=== PATIENT | male | born 1965 | race Caucasian/White ===

== ENCOUNTER 2017-01-19 11:32 | Emergency (ER) | payer SELFPAY ==
--- NOTE | 2017-01-19 12:27 | UC ---
Neck Pain HPI - HPI Summary HPI Summary: AFTER LIFTING A HEAVY GARBAGE CAN YESTERDAY PT FELT A POP AND NOW HAS LEFT SIDED NECK AND UPPER BACK PAIN. HAS SOME TINGLING IN THE FINGERS OF HIS LEFT HAND. - History of Current Complaint Chief Complaint: UCUpperExtremity Stated Complaint: NECK INJURY Time Seen by Provider: 01/19/17 12:14 Hx Obtained From: Patient Timing: Constant Onset/Duration: Sudden Onset Severity: Moderate Pain Intensity: 4 Pain Scale Used: 0-10 Numeric Location: Discrete At: - LEFT NECK Character: Aching Aggravating Factors: Movement Alleviating Factors: Nothing Associated Signs & Symptoms: Positive: Paresthesia - Allergies/Home Medications Allergies/Adverse Reactions: Allergies Allergy/AdvReac Type Severity Reaction Status Date / Time No Known Allergies Allergy Verified 12/20/14 19:54 PMH/Surg Hx/FS Hx/Imm Hx Previously Healthy: Yes - Surgical History Surgical History: Yes Surgery Procedure, Year, and Place: dental, bilat ear tubes, t&a - Family History Known Family History: Negative: Hypertension, Other - TOBACCO ABUSE - Social History Alcohol Use: None Substance Use Type: None Smoking Status (MU): Heavy Every Day Tobacco Smoker Household Exposure Type: Cigarettes Review Of Systems Constitutional: Positive: Negative Skin: Positive: Negative Respiratory: Positive: Negative Cardiovascular: Positive: Negative Gastrointestinal: Positive: Negative Musculoskeletal: Positive: Arthralgia, Myalgia Neurological: Positive: Paresthesia All Other Systems Reviewed And Are Negative: Yes Physical Exam Triage Information Reviewed: Yes Appearance: Well-Appearing, No Pain Distress, Well-Nourished Vital Signs: Initial Vital Signs Temp 97.5 F 01/19/17 11:36 Pulse 93 01/19/17 11:36 Resp 16 01/19/17 11:36 BP 122/76 01/19/17 11:36 Pulse Ox 98 01/19/17 11:36 Vital Signs Reviewed: Yes ENT: Positive: Hearing grossly normal Neck: Positive: Supple, Nontender, No Lymphadenopathy Respiratory Exam: Normal Cardiovascular Exam: Normal Abdomen Description: Positive: Soft Musculoskeletal: Positive: No Edema, Other: - NEG SPURLINGS. Neurological: Positive: Alert Psychological: Positive: Age Appropriate Behavior Skin: Negative: rashes Diagnostics - Radiology C-SPINE XRAYS Xray Interpretation: Positive (See Comments) - STRAIGHTENING OF THE CERVICAL LORDOSIS. MILD DEGENERATIVE CHANGES. Radiology Interpretation Completed By: Radiologist T-SPINE XRAYS Xray Interpretation: Positive (See Comments) - MILD DEGENERATIVE CHANGES. Radiology Interpretation Completed By: Radiologist Neck Pain Course/Dx - Differential Dx/Diagnosis Provider Diagnoses: CERVICAL RADICULOPATHY Discharge - Discharge Plan Condition: Stable Disposition: HOME Prescriptions: predniSONE TAB* [Deltasone TAB*] 50 mg PO DAILY #5 tab Patient Education Materials: Cervical Radiculopathy (ED) Forms: *Work Release Referrals: Jake Fernández MD [Primary Care Provider] - If Needed Linwood Swartz MD [Medical Doctor] - 1 Week Additional Instructions: XRAYS OF YOUR CERVICAL SPINE AND THORACIC SPINE SHOW SOME DEGENERATIVE CHANGES. YOU MAY BENEFIT FROM EVAL BY NEUROSURG AND PHYSICAL THERAPY. PT REFERRAL GIVEN TODAY. CALL DR. SWARTZ FOR A FOLLOW-UP APPT. GO TO THE ER WITHOUT FAIL IF YOUR SYMPTOMS WORSEN.
--- NOTE | 2017-01-19 13:09 | RAD ---
HISTORY: Neck pain, tingling fingers COMPARISONS: None VIEWS: 3, Frontal, lateral, and open-mouth odontoid views of the cervical spine. FINDINGS: The cervical spine is visualized from the skull base through C7-T1. ALIGNMENT: There is straightening of the normal cervical lordosis. VERTEBRAL BODIES: The odontoid process is intact. The atlantoaxial intervals are symmetric. There is mild anterolateral marginal osteophyte formation at C5-C6 and C6-C7 JOINTS: There is no subluxation or dislocation. The facet joints are unremarkable. INTERVERTEBRAL DISCS: There is mild diffuse loss of intervertebral disc height. SOFT TISSUE: The prevertebral soft tissues are normal. OTHER: The skull base is normal. The lung apices are clear. IMPRESSION: STRAIGHTENING OF THE CERVICAL LORDOSIS. MILD DEGENERATIVE CHANGES.
--- NOTE | 2017-01-19 13:10 | RAD ---
HISTORY: Pain, finger tingling COMPARISONS: None VIEWS: 2, Frontal and lateral views of the thoracic spine. FINDINGS: ALIGNMENT: The alignment is normal. VERTEBRAL BODIES: The vertebral body heights are normal. The interpedicular distances are normal. There is mild anterolateral marginal osteophyte formation. JOINTS: Unremarkable. INTERVERTEBRAL DISCS: There is mild diffuse loss of intervertebral disc height. SOFT TISSUE: Unremarkable OTHER: The visualized lungs are clear. IMPRESSION: MILD DEGENERATIVE CHANGES
[2017-01-19 13:33] VITALS: BP 138/83
== END 2017-01-19 13:47 | disposition home or self-care (01) ==
LOC: UCEAST 11:32
DX: M54.12 Radiculopathy, cervical region (principal); F17.210 Nicotine dependence, cigarettes, uncomplicated
CPT/HCPCS: 72040; 72070; 99212; G0463

== ENCOUNTER 2018-03-19 15:28 | Emergency (ER) | payer BC, OTHER ==
[2018-03-19 16:00] VITALS: BP 149/88
--- NOTE | 2018-03-19 16:26 | UC ---
Abdominal Pain Male HPI - HPI Summary HPI Summary: Patient presents to urgent care with his significant other. Patient states progressive over the last 3-4 weeks he's been having episodes of constipation. Patient states a week ago he develops significant abdominal pain after eating dinner. Patient states he was nauseous he was sweaty and felt like he couldn't catch his breath. Patient states this subsided. Over last weekend he had a colon cleanse that seemed to help. Patient states during this week he's continued to have progressive intermittent episodes of abdominal pain. Patient states mostly the pain is in his left lower quadrant but states sometimes it is more diffuse. This past , patient ate cheesy hamburger for dinner. Patient states approximately one hour after dinner he had severe abdominal pain , nausea, diaphoresis. Patient states he ended up on all fours because he was doubled over from the pain. Patient without any fevers or chills. Patient states her last 36 hours his urine has gotten very dark which prompted him to come here today. Last bowel movement was small and was yesterday. Patient without any history of abdominal surgeries. Patient without any pain in his penis or testicles. Patient also has some back muscle spasm left more than right. Patient denies history of similar. Patient's never had a colonoscopy. Patient reports decreased appetite. Patient does report some sweats at night. ETOH 2-3x/wk Pt medications reviewed this visit - History of Current Complaint Chief Complaint: UCGeneralIllness Stated Complaint: ABD PAIN Time Seen by Provider: 03/19/18 16:24 Hx Obtained From: Patient, Family/Jive Developer Onset/Duration: Gradual Onset Severity Initially: Severe Severity Currently: Mild Pain Intensity: 2 Pain Scale Used: 0-10 Numeric - Allergies/Home Medications Allergies/Adverse Reactions: Allergies Allergy/AdvReac Type Severity Reaction Status Date / Time No Known Allergies Allergy Verified 03/19/18 16:02 Home Medications: Home Medications L. Acidophilus/Dig Enz Cmb 5 [Probiotic-Digestive Enzymes] 1 each PO DAILY 03/19 [History Confirmed 03/19/18] PMH/Surg Hx/FS Hx/Imm Hx Previously Healthy: Yes - Surgical History Surgical History: Yes Surgery Procedure, Year, and Place: dental, bilat ear tubes, t&a - Family History Known Family History: Negative: Hypertension, Other - TOBACCO ABUSE, DM, CAD - Social History Occupation: Employed Full-time - [employer] Alcohol Use: Occasionally Substance Use Type: None Smoking Status (MU): Heavy Every Day Tobacco Smoker Household Exposure Type: Cigarettes Review of Systems Constitutional: Fatigue, Other - diaphoresis Respiratory: Cough Gastrointestinal: Abdominal Pain, Vomiting, Diarrhea, Nausea, Other - constipatin Genitourinary: Other - dark urine All Other Systems Reviewed And Are Negative: Yes Physical Exam - Summary Physical Exam Summary: Vital Signs Reviewed: Yes A+Ox3, no distress Eyes: Conjunctiva Clear, ROXY. EOM intact and full ENT: Hearing grossly normal TM x 2 clear, mmoist, uvula midline, no exudate, no erythema Neck: Positive: Supple Respiratory: Positive: No respiratory distress, No accessory muscle use + wheeze bases lungs L>R no increased WOB Cardiovascular: RRR nl s1, s2 no m/r CBT <2 sec abd soft +TTP RUQ + TTP LLQ no guarding, no rebound, no CVA b/l Musculoskeletal Exam: JUAREZ x 4 without difficulty Strength Intact, ROM Intact Neurological: Positive: Alert, + sensation throughout Psychological: Positive: Normal Response To Family Skin: Positive: no rash, no ecchymosis Triage Information Reviewed: Yes Vital Signs: Initial Vital Signs Temp 99.4 F 03/19/18 15:53 Pulse 86 03/19/18 15:53 Resp 16 03/19/18 15:53 BP 149/88 03/19/18 15:53 Pulse Ox 98 03/19/18 15:53 Abd Pain Male Course/Dx - Course Course Of Treatment: Patient presents to urgent care with multiple complaints. Patient states over the last month or so he's had intermittent episodes of constipation. Patient has had 2 episodes presents with 7 days part of right upper quadrant and diffuse abdominal pain after eating. Patient with nausea diaphoresis and difficulty finding position of comfort. Patient states over the last 36 hours he's noticed that his urine has been very dark. On exam, patient with wheezes in his lung bases, left lower quadrant pain, and right upper quadrant pain. Review of patient's urine shows 3+ bilirubin. Differential is wide and includes pneumonia, cholecystitis, ascending cholangitis, diverticulitis, renal colic. After much discussion with patient and significant recommended patient go to the emergency room for further evaluation and treatment. Patient in agreement with plan Patient aware testing will be at the discretion of the providers emergency department. Patient sent by private vehicle. Dr. Aquino aware patient will be coming. - Differential Dx/Clinical Impression Provider Diagnoses: abdominal pain Discharge - Sign-Out/Discharge Documenting (check all that apply): Patient Departure All imaging exams completed and their final reports reviewed: No Studies - Discharge Plan Condition: Stable Disposition: HOME-RECOMMEND TO ED Patient Education Materials: Abdominal Pain (ED) Referrals: Jake Fernández MD [Primary Care Provider] - Additional Instructions: The doctor that evaluated you today thinks that you need additional testing that can be completed the emergency department. It is recommended that you go directly to emergency department for further evaluation. This evaluation may include blood work or imaging. This testing will be directed and decided by the provider that evaluates you at the emergency department. If pain becomes worse, you feel lightheaded, you have uncontrolled vomiting, or you have any other concerns while you are being driven to emergency department as recommended to pullover and contact 911. - Billing Disposition and Condition Condition: STABLE Disposition: Home-Recommend to ED
== END 2018-03-19 17:04 | disposition home health service (06) ==
LOC: UCEAST 15:28
DX: R10.9 Unspecified abdominal pain (principal)
CPT/HCPCS: 81003; 99212; G0463

== ENCOUNTER 2018-03-19 17:20 | Inpatient (IN) | payer BC ==
[2018-03-19 17:55] LABS: ABS Basophils 0.1 10^3/ul (0-0.2); ABS Eosinophils 0.1 10^3/ul (0-0.6); ABS Lymphocytes 1.2 10^3/ul (1.0-4.8); ABS Monocytes 0.8 10^3/ul (0-0.8); ABS Neutrophils 6.9 10^3/ul (1.5-7.7); ABS Nucleated RBC 0 10^3/ul; Eosinophil % 0.9 % (0-6); Hematocrit 51 % (42-52); Hemoglobin 17.5 g/dl (14.0-18.0); Lymphocyte % 13.3 % (25-47); Mean Corpuscular HGB Conc 35 g/dl (31-36); Mean Corpuscular Hemoglobin 32 pg (27-31); Mean Corpuscular Volume 93 fL (80-94); Mean Platelet Volume 8.1 um3 (7.4-10.4); Nucleated Red Blood Cells % 0.1; Platelet Count 242 10^3/ul (150-450); Red Blood Count 5.46 10^6/ul (4.00-5.40); Red Cell Distribution Width 14 % (10.5-15)
[2018-03-19] MEDS ORDERED: Morphine INJ* 2 MG/ML 1 ML SYRINGE (TWO MG - NEW SYRINGE VERSION) IV ONE (17:58)
[2018-03-19] MEDS ORDERED: Ondansetron INJ* 2 MG/ML VIAL IV ONE (17:58)
--- NOTE | 2018-03-19 18:00 | ED ---
Abdominal Pain/Male - HPI Summary HPI Summary: Pt. is a 53-year-old male who presents emergency department for left lower quadrant abdominal pain 2 weeks. Patient notes increase in gas and pressure. Associated symptoms of decreased appetite and constipation. Patient denies fever, chills, chest pain, shortness of breath. Patient also notes mild pain after urination and dark urine. Patient denies past medical history. He states he sees a family physician yearly for a physical. Has not had a colonoscopy yet. Symptoms are moderate in severity. Movement makes symptoms worse. Sitting up makes symptoms better. - History of Current Complaint Chief Complaint: EDAbdPain Stated Complaint: ABD PAIN Time Seen by Provider: 03/19/18 17:37 Hx Obtained From: Patient Pain Intensity: 5 - Allergies/Home Medications Allergies/Adverse Reactions: Allergies Allergy/AdvReac Type Severity Reaction Status Date / Time No Known Allergies Allergy Verified 03/19/18 17:22 PMH/Surg Hx/FS Hx/Imm Hx Previously Healthy: Yes Endocrine/Hematology History: Denies: Hx Diabetes, Hx Thyroid Disease Cardiovascular History: Denies: Hx Hypertension Respiratory History: Denies: Hx Asthma, Hx Chronic Obstructive Pulmonary Disease (COPD) GI History: Denies: Hx Ulcer Psychiatric History: Denies: Hx Eating Disorder, Hx of Violent Episodes Against Others - Surgical History Surgery Procedure, Year, and Place: dental, bilat ear tubes, t&a Infectious Disease History: No Infectious Disease History: Denies: Hx Hepatitis, Hx Human Immunodeficiency Virus (HIV), Traveled Outside the in Last 30 Days - Family History Known Family History: Negative: Hypertension, Other - TOBACCO ABUSE, DM, CAD - Social History Occupation: Employed Full-time Lives: With Family Alcohol Use: Occasionally Substance Use Type: Reports: None Smoking Status (MU): Heavy Every Day Tobacco Smoker Review of Systems Constitutional: Negative Negative: Fever, Chills Cardiovascular: Negative Negative: Palpitations, Chest Pain Respiratory: Negative Negative: Shortness Of Breath, Cough Positive: Abdominal Pain. Negative: Vomiting, Nausea, Other - constipation Positive: dysuria Neurological: Negative All Other Systems Reviewed And Are Negative: Yes Physical Exam Triage Information Reviewed: Yes Vital Signs On Initial Exam: Initial Vitals Temp Pulse Resp BP Pulse Ox 98.2 F 82 16 150/96 94 03/19/18 17:22 03/19/18 17:22 03/19/18 17:22 03/19/18 17:22 03/19/18 17:22 Vital Signs Reviewed: Yes Appearance: Positive: Well-Appearing - Pt. lying on bed in NAD. present Skin: Positive: Warm, Dry, Other - Skin appears mildly jaundiced. Head/Face: Positive: Normal Head/Face Inspection Eyes: Positive: Normal, EOMI, Other: - Mild icterus Neck: Positive: Supple Respiratory/Lung Sounds: Positive: Clear to Auscultation, Breath Sounds Present Cardiovascular: Positive: Normal, RRR Abdomen Description: Positive: Other: - Distended. Abd. is soft with significant tenderness to the LLQ with guarding. Minimal RUQ pain. Negative franks sign. Neurological: Positive: Normal, CN Intact II-III Psychiatric: Positive: Affect/Mood Appropriate Diagnostics - Vital Signs Vital Signs Temp Pulse Resp BP Pulse Ox 03/19/18 17:22 98.2 F 82 16 150/96 94 - Laboratory Lab Results: Lab Results 03/19/18 Range/Units 17:43 WBC 9.0 (3.5-10.8) 10^3/ul RBC 5.46 H (4.00-5.40) 10^6/ul Hgb 17.5 (14.0-18.0) g/dl Hct 51 (42-52) % MCV 93 (80-94) fL MCH 32 H (27-31) pg MCHC 35 (31-36) g/dl RDW 14 (10.5-15) % Plt Count 242 (150-450) 10^3/ul MPV 8.1 (7.4-10.4) um3 Neut % (Auto) 76.5 (38-83) % Lymph % (Auto) 13.3 L (25-47) % Griggs % (Auto) 8.7 H (0-7) % Eos % (Auto) 0.9 (0-6) % Baso % (Auto) 0.6 (0-2) % Absolute Neuts (auto) 6.9 (1.5-7.7) 10^3/ul Absolute Lymphs (auto) 1.2 (1.0-4.8) 10^3/ul Absolute Monos (auto) 0.8 (0-0.8) 10^3/ul Absolute Eos (auto) 0.1 (0-0.6) 10^3/ul Absolute Basos (auto) 0.1 (0-0.2) 10^3/ul Absolute Nucleated RBC 0 10^3/ul Nucleated RBC % 0.1 Result Diagrams: 03/19/18 17:43 03/19/18 17:43 Lab Statement: Any lab studies that have been ordered have been reviewed, and results considered in the medical decision making process. Abdominal Pain Fem Course/Dx - Course Course Of Treatment: Pt. presenting for ongoing LLQ abd. pain. He is afebrile with stable vital signs. Blood work and CT scan ordered. Pt. started on fluids, morphine and zofran. CBC is unremarkable. CMP shows bilirubin of 6.3, AST 137, ALT 267, alk phos 200. GB u/s ordered. GB U/S per radiology: IMPRESSION: 1. Cholelithiasis with multiple shadowing stones in a contracted gallbladder. There is gallbladder wall thickening measuring 5 mm with trace pericholecystic. fluid. There is a negative sono Franks's sign. 2. Otherwise negative right upper quadrant sonogram. CT abd. pelvis per radiology: IMPRESSION: 1. Cholelithiasis with several gallstones in a contracted gallbladder. 2. Large paraspinal venous collaterals with a relatively diminutive IVC of. uncertain etiology. 3. Otherwise negative CT abdomen/pelvis. I spoke with eamon jeronimo, Dr. Kelly, who reviewed imaging and labs. On re-exam pt. is pain free. Concerned for cholecystitis but pt. has no RUQ pain. Dr. Kelly would like pt. admitted for MRCP. Clear liquid diet. I spoke with hospitalist, Dr. Mcneil, and pt. has been accpeted to his service. - Diagnoses Differential Diagnosis/HQI/PQRI: Appendicitis, Bowel Obstruction, Constipation, Diverticulitis, Gall Bladder Disease, Hepatitis, Pancreatitis, Renal Colic, Ureteral Stone, Urinary Tract Infection Provider Diagnoses: Cholecystitis Discharge - Sign-Out/Discharge Documenting (check all that apply): Patient Departure - Discharge Plan Condition: Stable Disposition: ADMITTED TO [facility] - Billing Disposition and Condition Condition: STABLE Disposition: Admitted to [facility]
[2018-03-19 18:05] LABS: INR 0.89 (0.77-1.02)
[2018-03-19 18:12] LABS: EGFR Non-African American 62.5 (>60)
[2018-03-19] MEDS ORDERED: Morphine INJ* 4 MG/ML 1 ML SYRINGE (NEW SYRINGE VERSION) ONE (18:16)
[2018-03-19] MEDS ORDERED: Iohexol 300* (CONTRAST) 10 ML SDV IV ONE (18:58)
--- NOTE | 2018-03-19 20:17 | RAD ---
EXAM: CT Abdomen and Pelvis With Intravenous Contrast EXAM DATE/TIME: Exam ordered 03/19/2018 7:11 PM CLINICAL HISTORY: 53 years old, male; Pain; Abdominal pain; Additional info: Llq, ruq pain TECHNIQUE: Axial computed tomography images of the abdomen and pelvis with intravenous contrast. All CT scans at this facility use at least one of these dose optimization techniques: automated exposure control; mA and/or kV adjustment per patient size (includes targeted exams where dose is matched to clinical indication); or iterative reconstruction. Coronal and sagittal reformatted images were created and reviewed. CONTRAST: 100 mL of OMNIPAQUE 300 administered intravenously. COMPARISON: No relevant prior studies available. FINDINGS: Lung bases: Slight bibasilar interstitial prominence and minimal right lower lobe dependent atelectasis. ABDOMEN: Liver: Unremarkable. No mass. Gallbladder and bile ducts: There are several gallstones in the gallbladder which is contracted including a small gallstone in the neck. No ductal dilation. Pancreas: Unremarkable. No mass. No ductal dilation. Spleen: Unremarkable. No splenomegaly. Adrenals: Unremarkable. No mass. Kidneys and ureters: There are left renal cysts measuring up to 3.6 cm. No hydronephrosis. Stomach and bowel: There is a diverticulum projecting from the proximal duodenal sweep. No obstruction. No mucosal thickening. PELVIS: Appendix: A normal appendix is seen. Bladder: Unremarkable. No mass. Reproductive: Unremarkable as visualized. ABDOMEN and PELVIS: Intraperitoneal space: Unremarkable. No free air. No significant fluid collection. Bones/joints: No acute fracture. No dislocation. Soft tissues: Unremarkable. Vasculature: Slight ectasia of the infrarenal abdominal aorta measuring 2.6 cm. There is mild calcification of the abdominal aorta. Large paraspinal venous collaterals with a relatively diminutive IVC. Lymph nodes: Unremarkable. No enlarged lymph nodes. IMPRESSION: 1. Cholelithiasis with several gallstones in a contracted gallbladder. 2. Large paraspinal venous collaterals with a relatively diminutive IVC of uncertain etiology. 3. Otherwise negative CT abdomen/pelvis. To contact [facility] with a general question: [facility] - [phone] For direct physician to physician contact: Physician Hotline - [phone] [facility] ([facility] Facility ID #[id number])
--- NOTE | 2018-03-19 20:21 | RAD ---
EXAM: US Abdomen Limited, Right Upper Quadrant EXAM DATE/TIME: Exam ordered 03/19/2018 7:28 PM CLINICAL HISTORY: 53 years old, male; Pain; Abdominal pain; Generalized; Additional info: Ruq pain TECHNIQUE: Real-time ultrasound of the right upper quadrant with image documentation. COMPARISON: A/P W CT ABD/PEL W 03/19/2018 7:11 PM FINDINGS: Liver: The liver demonstrates no focal defects and measures 16.8 cm. No intrahepatic bile duct dilation. Gallbladder: The gallbladder is contracted and contains multiple shadowing stones. The gallbladder wall is measured as thick measuring 5 mm with trace pericholecystic fluid. There is a negative sono Franks's sign. Common bile duct: The CBD measures 4 mm. No stones. No dilation. Pancreas: The pancreas is obscured by gas shadowing. Right kidney: The right kidney is normal measuring 12.5 cm. No stones. No hydronephrosis. IMPRESSION: 1. Cholelithiasis with multiple shadowing stones in a contracted gallbladder. There is gallbladder wall thickening measuring 5 mm with trace pericholecystic fluid. There is a negative sono Franks's sign. 2. Otherwise negative right upper quadrant sonogram. To contact [facility] with a general question: Operations Center - [phone] For direct physician to physician contact: Physician Hotline - [phone] [facility] ([facility] Facility ID #[id number])
--- NOTE | 2018-03-19 21:51 | ADMNOTE ---
Subjective Date of Service: 03/19/18 Interval History: hpi 53 yr wm with no sig phx presented after abd pain recurrent dull type few episodes with dark and constant burning when urinatiing since last night ---> says he came in more so for urinary problem than abd pain. abd pain started last after meals 01/21 then disappeared. pt remained pain free until this night. each episode pain would last 6-8 hrs--- > resolved on its own---> pain is localized on luq/llq radiating to his back ( piercing through ). pain free fri and sat pain level varies from 4-8. food and sitting up would make it worse and morphine/walking around would make it better. pt has been only taking yougurt and cereal for the past two days. his and he thought it was related to gas. he does have gerd hx but not on any meds. 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 Past Medical History: Unchanged from Admission - cig smoker gerd Review of Systems - Measurements Intake and Output: Intake and Output Last 24 Hours 03/17/18 03/18/18 03/19/18 03/20/18 06:59 06:59 06:59 06:59 Weight 192 lb - Review of Systems General Comments: ros the ros 05/25 went over with pt please refer to hpi Objective Vital Signs - 8 hr 03/19/18 03/19/18 03/19/18 17:22 17:39 18:10 Temperature 98.2 F Pulse Rate 82 88 83 Respiratory 16 Rate Blood Pressure 150/96 176/94 163/89 (mmHg) O2 Sat by Pulse 94 95 96 Oximetry 10/06/18 10/06/18 10/06/18 18:11 18:20 18:40 Temperature Pulse Rate 85 84 Respiratory 18 Rate Blood Pressure 144/90 (mmHg) O2 Sat by Pulse 98 95 Oximetry 03/19/18 03/19/18 03/19/18 19:00 20:04 20:05 Temperature 98.3 F Pulse Rate 91 86 Respiratory Rate Blood Pressure 174/91 (mmHg) O2 Sat by Pulse 95 94 Oximetry Eyes: No Scleral Icterus, PERRLA Neck: NL Appearance and Movements; NL JVP, Trachea Midline, No Thyroid Enlargement, Masses Respiratory: Symmetrical Chest Expansion and Respiratory Effort, Clear to Auscultation, Clear to Percussion Cardiovascular: NL Sounds; No Murmurs; No JVD Abdominal: NL Sounds; No Tenderness; No Distention, No Hepatosplenomegaly Extremities: No Edema, No Clubbing, Cyanosis, - - able to raise ue and le against gravity no gross limit rom seen Skin: No Rash or Ulcers Neurological: Alert and Oriented x 3, NL Sensation, NL Gait, NL Muscle Strength and Tone Result Diagrams: 03/19/18 17:43 03/19/18 17:43 Additional Lab and Data: Lab Results 03/19/18 Range/Units 17:43 WBC 9.0 (3.5-10.8) 10^3/ul RBC 5.46 H (4.00-5.40) 10^6/ul Hgb 17.5 (14.0-18.0) g/dl Hct 51 (42-52) % MCV 93 (80-94) fL MCH 32 H (27-31) pg MCHC 35 (31-36) g/dl RDW 14 (10.5-15) % Plt Count 242 (150-450) 10^3/ul MPV 8.1 (7.4-10.4) um3 Neut % (Auto) 76.5 (38-83) % Lymph % (Auto) 13.3 L (25-47) % [place] % (Auto) 8.7 H (0-7) % Eos % (Auto) 0.9 (0-6) % Baso % (Auto) 0.6 (0-2) % Absolute Neuts (auto) 6.9 (1.5-7.7) 10^3/ul Absolute Lymphs (auto) 1.2 (1.0-4.8) 10^3/ul Absolute Monos (auto) 0.8 (0-0.8) 10^3/ul Absolute Eos (auto) 0.1 (0-0.6) 10^3/ul Absolute Basos (auto) 0.1 (0-0.2) 10^3/ul Absolute Nucleated RBC 0 10^3/ul Nucleated RBC % 0.1 Assess/Plan/Problems-Billing Assessment: ( poor historian ) 53 yr old wm with no hx presented to er with abd pain luq/llq through back few episodes pt was found to have elevated lft and ct/sono + gallstones no wbc with stable vital ---> spoke with surgery who wanted mrcp abx zosyn ordered - Patient Problems (1) Cholecystitis, acute Current Visit: Yes Status: Acute Code(s): K81.0 - ACUTE CHOLECYSTITIS SNOMED Code(s): 75103203 Comment: acute cholycystitis strict npo surgerical eval in am moniter cbc and lactic and lft trends pt is optimized for his procedure if needed in am (2) LFT elevation Current Visit: Yes Status: Acute Code(s): R94.5 - ABNORMAL RESULTS OF LIVER FUNCTION STUDIES SNOMED Code(s): 999944746 (3) Gallstone Current Visit: Yes Status: Acute Code(s): K80.20 - CALCULUS OF GALLBLADDER W /O CHOLECYSTITIS W/O OBSTRUCTION SNOMED Code(s): 152171101 Comment: few stones still seen in gallbladder cbd patent seen on ultrasoound - surgery eval in am (4) Cigar smoker Current Visit: Yes Status: Acute Code(s): F17.290 - NICOTINE DEPENDENCE, OTHER TOBACCO PRODUCT, UNCOMPLICATED SNOMED Code(s): 94116134 (5) GERD (gastroesophageal reflux disease) Current Visit: Yes Status: Resolved Code(s): K21.9 - GASTRO-ESOPHAGEAL REFLUX DISEASE WITHOUT ESOPHAGITIS SNOMED Code(s): 029450340 Comment: protonix iv 40 mg daily (6) DVT prophylaxis Current Visit: Yes Status: Acute Code(s): UZO3764 - SNOMED Code(s): 947179297 Comment: heparin tid 5000 due to prob surgery (7) CRP elevated Current Visit: Yes Status: Acute Code(s): R79.82 - ELEVATED C-REACTIVE PROTEIN (CRP) SNOMED Code(s): 686570488227476 (8) Elevated C-reactive protein (CRP) Current Visit: Yes Status: Acute Code(s): R79.82 - ELEVATED C-REACTIVE PROTEIN (CRP) SNOMED Code(s): 831585083795942 Comment: due to concurrent infection - blood culutred ordered by this story writer started with zosyn ( no need for flagyl yet ) - moninter cbc and crp trend
[2018-03-19] MEDS ORDERED: Morphine INJ* 4 MG/ML 1 ML SYRINGE (NEW SYRINGE VERSION) IV PRN ×2 (21:54→22:01)
[2018-03-19] MEDS ORDERED: Ondansetron INJ* 2 MG/ML VIAL IV PRN (21:55)
[2018-03-19] MEDS ORDERED: Zosyn per Pharmacy* NOTE FOLLOW UP PRN (22:10)
[2018-03-19] MEDS ORDERED: Zosyn 3.375 GM IV - ED ONCE IVPB ONE ×2 (22:15)
[2018-03-19] MEDS: NS 0.9% 1000 ML* 1,000 ML IV SCH (23:49)
[2018-03-20 00:04] LABS: Urine Appearance Clear; Urine Blood 1+ (Negative); Urine Color Amber; Urine Ketones 1+ (Negative); Urine Protein Negative (Negative); Urine Red Blood Cell Trace(0-2/hpf) (Absent); Urine Specific Gravity > 1.060 (1.010-1.030); Urine Urobilinogen Positive (Negative); Urine White Blood Cell Absent (Absent)
[2018-03-20] MEDS: Pantoprazole IV* 40 MG IV SCH ×2 (00:40→23:28)
[2018-03-20] MEDS ORDERED: Piperacillin/Tazobac ADVAN(*) 3.375 GM in NS 0.9% 100 ML* 100 ML IVPB SCH (04:00)
[2018-03-20] MEDS: Heparin VIAL(*) 5000 UNITS/ML VIAL (FIVE THOUSAND) SUBCUT SCH ×3 (04:10→20:59)
[2018-03-20 06:41] LABS: ABS Basophils 0 10^3/ul (0-0.2); ABS Eosinophils 0.1 10^3/ul (0-0.6); ABS Monocytes 0.7 10^3/ul (0-0.8); ABS Neutrophils 4.6 10^3/ul (1.5-7.7); ABS Nucleated RBC 0 10^3/ul; Eosinophil % 1.6 % (0-6); Hematocrit 47 % (42-52); Hemoglobin 16.3 g/dl (14.0-18.0); Lymphocyte % 15.9 % (25-47); Mean Corpuscular HGB Conc 35 g/dl (31-36); Mean Corpuscular Hemoglobin 32 pg (27-31); Mean Corpuscular Volume 93 fL (80-94); Mean Platelet Volume 8.4 um3 (7.4-10.4); Nucleated Red Blood Cells % 0.1; Platelet Count 215 10^3/ul (150-450); Red Blood Count 5.03 10^6/ul (4.00-5.40); Red Cell Distribution Width 14 % (10.5-15); White Blood Count 6.5 10^3/ul (3.5-10.8)
[2018-03-20 06:56] LABS: EGFR Non-African American 71.3 (>60)
[2018-03-20] MEDS: Nicotine PATCH 21 MG/24 HR* PATCH TRANSDERM SCH (08:01)
[2018-03-20] MEDS: NS 0.9% 1000 ML* 1,000 ML IV SCH ×2 (09:07→20:59)
--- NOTE | 2018-03-20 10:36 | PN ---
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 Past Medical History: Unchanged from Admission - cig smoker gerd Objective Active Medications: Heparin Sodium (Porcine) (Heparin Vial(*)) 5,000 units SUBCUT Q8HR [facility] Last Admin: 03/20/18 04:10 Dose: Not Given Sodium Chloride (Ns 0.9% 1000 Ml*) 1,000 mls @ 125 mls/hr IV PER RATE [facility] Last Admin: 03/20/18 09:07 Dose: 125 mls/hr Nicotine (Nicotine Patch 21 Mg/24 Hr*) 1 patch TRANSDERM DAILY@0800 [facility] Last Admin: 03/20/18 08:01 Dose: 1 patch Ondansetron HCl (Zofran Inj*) 4 mg IV Q6H PRN PRN Reason: NAUSEA Pantoprazole Sodium (Protonix Iv*) 40 mg IV Q24H [facility] Last Admin: 03/20/18 00:40 Dose: 40 mg Pharmacy Profile Note (Nicotine Patch Removal Note*) 1 note PATCH OFF 2100 [facility] Vital Signs - 8 hr 03/20/18 03/20/18 03/20/18 03:42 06:46 08:00 Temperature 97.3 F 98.6 F Pulse Rate 75 74 Respiratory 16 18 15 Rate Blood Pressure 127/67 132/67 (mmHg) O2 Sat by Pulse 95 92 Oximetry Oxygen Devices in Use Now: None Appearance: NAD Eyes: No Scleral Icterus, PERRLA Ears/Nose/Mouth/Throat: NL Teeth, Lips, Gums, Clear Oropharnyx Neck: NL Appearance and Movements; NL JVP, Trachea Midline Respiratory: Symmetrical Chest Expansion and Respiratory Effort, Clear to Auscultation Cardiovascular: RRR Abdominal: - - veyr mild TTP LLQ to deep palpation Lymphatic: No Cervical Adenopathy Extremities: No Edema Skin: No Rash or Ulcers Neurological: Alert and Oriented x 3 Result Diagrams: 03/20/18 06:17 03/20/18 06:17 Additional Lab and Data: Lab Results 03/19/18 Range/Units 17:43 WBC 9.0 (3.5-10.8) 10^3/ul RBC 5.46 H (4.00-5.40) 10^6/ul Hgb 17.5 (14.0-18.0) g/dl Hct 51 (42-52) % MCV 93 (80-94) fL MCH 32 H (27-31) pg MCHC 35 (31-36) g/dl RDW 14 (10.5-15) % Plt Count 242 (150-450) 10^3/ul MPV 8.1 (7.4-10.4) um3 Neut % (Auto) 76.5 (38-83) % Lymph % (Auto) 13.3 L (25-47) % [place] % (Auto) 8.7 H (0-7) % Eos % (Auto) 0.9 (0-6) % Baso % (Auto) 0.6 (0-2) % Absolute Neuts (auto) 6.9 (1.5-7.7) 10^3/ul Absolute Lymphs (auto) 1.2 (1.0-4.8) 10^3/ul Absolute Monos (auto) 0.8 (0-0.8) 10^3/ul Absolute Eos (auto) 0.1 (0-0.6) 10^3/ul Absolute Basos (auto) 0.1 (0-0.2) 10^3/ul Absolute Nucleated RBC 0 10^3/ul Nucleated RBC % 0.1 Assess/Plan/Problems-Billing Assessment: 53 yo man no known med hx p/w dark urine and LLQ abdominal pain x 24 hrs found with elevated LFTs - Patient Problems (1) LFT elevation Comment: MRCP GI c/s entered NPO trend LFTs, ask for fractionation of bili no e/o infection except trace pericholicystic fluid - no pain/fevers/WBC will dc abx now (2) Acute kidney injury Comment: dehydration c/w IVF (3) DVT prophylaxis Comment: HSQ
--- NOTE | 2018-03-20 12:40 | RAD ---
Indication: Elevated bilirubin with concern for intermittent obstructing common bile duct stone. Comparison: March 19, [address] Technique: [employer] 1.5 Puja UL947M with GEM suite. Noncontrast magnetic resonance cholangiopancreatography. Report: Negative for intra or extrahepatic biliary dilatation. The common bile duct measures up to 5 mm diameter. No filling defects are identified within the common bile duct to indicate presence of a ductal stone. Small burden of subcentimeter stones at the gallbladder. Negative for appreciable gallbladder wall thickening or pericholecystic fluid. Negative for pancreatic duct dilatation or peripancreatic inflammatory change. Simple cortical cyst upper pole LEFT kidney. Negative for ascites. IMPRESSION: #. Negative for biliary dilatation or evidence for a choledochal stone. #. Cholelithiasis without secondary findings to favor acute cholecystitis.
[2018-03-20] MEDS ORDERED: Nicotine Patch Removal NOTE PATCH OFF SCH (21:00)
--- NOTE | 2018-03-20 21:57 | CONS ---
CONSULTATION REPORT: DATE OF CONSULT: 03/20/18 REQUESTING PHYSICIAN: Dr. Corky Hahn. REASON FOR CONSULT: Transaminitis with elevated bilirubin. HISTORY OF PRESENT ILLNESS: This is a 53-year-old pleasant male, who presented initially to the emergency room on 03/19/18 with right upper quadrant abdominal pain and yellowing to the eyes. He stated he felt like gas and pressure and also noticed a change in his urine that was darker and a paler color to his stool. The pain at times was referred down to the left quadrant, but was also present in the right upper quadrant as well. Denied any fever, chills, shakes, or rigors. Denies any history of this before. The pain was cramping in nature , 4/10, nothing made it better or worse. He did note decreased appetite and also constipation. He has never had a colonoscopy in the past. He denies any dysphagia, odynophagia. He occasionally has heartburn for which he takes a proton pump inhibitor. He does use NSAIDs. Denies any melena, hematochezia. Denies any milly diarrhea or any other abdominal pain. There was no weight loss. The remainder of the 14-point review of systems is grossly negative. PAST MEDICAL HISTORY: None. PAST SURGICAL HISTORY: Ear tubes and tonsils. HOME MEDICATIONS: Include: 1. A proton pump inhibitor, he is not sure of the name. 2. Occasional ibuprofen. 3. Probiotics. FAMILY HISTORY: No known colorectal cancer, GI cancers, or inflammatory bowel disease. SOCIAL HISTORY: Seven drinks a week. Current tobacco smoker. No history of IV drug use or illicit or tattoos. REVIEW OF SYSTEMS: The remainder of the 14-point review of systems was grossly negative. PHYSICAL EXAM: Vital Signs: Blood pressure is 127/60, pulse is 77, respiratory rate is 18, he is 98% on room air, and temperature is 97.9. In general, he is alert and oriented x3, jaundiced. HEENT: Atraumatic, normocephalic. Pupils are equal, round, reactive to light. Extraocular movements are intact. Sclerae are icteric. Conjunctivae are pink. Neck: Supple. Trachea midline. Cardiovascular: Regular rate and rhythm. S1, S2. Respiratory: Clear to auscultation bilaterally. Abdomen: Soft, nontender, nondistended. Bowel sounds positive with no positive Franks sign. There is no guarding or rebound. Extremities: No clubbing, no cyanosis, no edema. Skin: There are no visible skin rashes or lesions. Neuro exam is nonfocal. DIAGNOSTIC STUDIES/LAB DATA: On admission, bilirubin was 6.30, AST was 137, ALT was 267, alkaline phosphatase was 200. CRP was 11.73. Creatinine was 1.21. WBC count was 9. Today, on exam, his WBC count is 6.5. Total bilirubin is 5.20 with 3.40 of that being direct, AST is 111, ALT is 244, alkaline phosphatase is 189. He had a CT done that showed a possible small stone in the neck of the gallbladder and also cholelithiasis, a diverticulum from the proximal duodenal sweep without large ductal dilatation. He had a gallbladder ultrasound that was done that revealed again cholelithiasis with multiple stones. The gallbladder was 5 mm with trace pericholecystic fluid. No intrahepatic dilation and a 4 mm CBD. ASSESSMENT AND PLAN: This is a 53-year-old male with cholelithiasis and elevated transaminases and bilirubin along with now resolved right upper quadrant abdominal pain. 1. Cholelithiasis with elevated transaminases. His bilirubin has improved slightly today and the transaminases have slightly improved. I question whether he has passed a stone or if there is a stone that has been ball-valving back and forth. I recommended an MRCP to fully elicit this to determine the need for a preop ERCP prior to possible cholecystectomy. I suspect that he has either passed the stone or a stone is ball-valving back and forth in the common bile duct and an MRCP would give us the best information for this and determine the next course of action. 2. Cholelithiasis. Will eventually need cholecystectomy. Time needs to be determined. 3. Abdominal pain, now resolved. ADDENDUM: MRCP does not reveal any ductal dilatation or choledocholithiasis. Given this finding, we would recommend observing overnight. If transaminases are continuing to improve, we would recommend touching base with the surgical service for timing of probable cholecystectomy. At this time, a preop ERCP does not appear to be indicated. The findings are more consistent with a recently passed stone. [id number]/[facility] #: [id number] [facility]
[2018-03-21] MEDS: Heparin VIAL(*) 5000 UNITS/ML VIAL (FIVE THOUSAND) SUBCUT SCH (05:15)
[2018-03-21] MEDS: NS 0.9% 1000 ML* 1,000 ML IV SCH (06:07)
[2018-03-21 07:20] LABS: EGFR Non-African American 90.2 (>60)
[2018-03-21] MEDS: Nicotine PATCH 21 MG/24 HR* PATCH TRANSDERM SCH (08:12)
[2018-03-21 11:47] VITALS: BP 121/68
--- NOTE | 2018-03-21 16:46 | DS ---
CC: Dr. Fernández; Dr. Michael Kelly * DISCHARGE SUMMARY: DATE OF ADMISSION: 03/19/18 DATE OF DISCHARGE: 03/21/18 PRIMARY CARE PROVIDER: Dr. Fernández. PRIMARY DIAGNOSIS: Hyperbilirubinemia with associated transaminitis. SECONDARY DIAGNOSES: Include: 1. Cholelithiasis. 2. Acute kidney injury. MEDICATIONS ON DISCHARGE: Tylenol 650 mg every 6 hours as needed for pain. DIET ON DISCHARGE: Low-fat. CONSULTATIONS PERFORMED DURING THE HOSPITAL STAY: Gastroenterology as well as surgical services. Please refer to their notes and information below for further information. IMAGING PERFORMED DURING THE HOSPITAL STAY: 1. CT abdomen and pelvis. Impression is cholelithiasis with several gallstones in the contracted gallbladder. Large paraspinal venous collaterals with a relatively diminutive IVC of uncertain etiology. 2. Gallbladder ultrasound, impression: Cholelithiasis with multiple shadowing stones in the contracted bladder. There is gallbladder wall thickening measuring 5 mm with trace pericholecystic fluid. There is a negative sonographic Franks sign. 3. MR angiogram (MRCP), impression: Negative for biliary dilatation or evidence for a choledochal stone. Cholelithiasis is without secondary findings to favor acute cholecystitis. PERTINENT LABORATORY DATA: White blood cell count on presentation 9.0, 6.5 on discharge. Creatinine on presentation 1.21, decreased to 0.88 on discharge. Total bilirubin 6.3 on presentation, 1.8 on discharge; direct fraction is 0.8 on discharge; AST is 137 on presentation, 56 on discharge; ALT is 267 on presentation, 187 on discharge; alk phos is 200 on presentation, 190 on discharge. HISTORY OF PRESENT ILLNESS AND HOSPITAL COURSE: This is a 53-year-old gentleman with insignificant past medical history, presented to the hospital with darkening urine, found with hyperbilirubinemia as well as cholelithiasis on his ultrasound. He underwent an MRCP at the direction of Dr. Armas, which did not indicate any choledocholithiasis nor further evidence of cholecystitis. He remained afebrile without a leukocytosis. His pain completely resolved prior to presentation to the hospital. He had had intermittent left lower quadrant pain for 2 days prior to presentation. His transaminitis and hyperbilirubinemia resolved. It was thought that he had choledocholithiasis that passed and is no longer obstructing. He was seen in consultation with Dr. Kelly from Surgery. Dr. Kelly recommend following up in his office in 4 to 7 days to have a more thorough conversation about an elective cholecystectomy as the patient is at risk for recurrent obstruction and potentially infection in the future. The patient agreed with his plan as is this author. The patient was counseled on low-fat diet, which he acknowledged. At followup, please; 1. Ensure the patient follows up with General Surgery to discuss elective cholecystectomy. 2. Can consider repeating LFTs. 3. No other specific labs or vitals that need followup. Reasons to return to the hospital including, but not limited to, recurrent or worsening symptoms including abdominal pain, darkening of his urine or lightening color of his bowel movements, fevers, chills, night sweats, nausea or vomiting, chest pain or shortness of breath were discussed with the patient and he acknowledged understanding. TIME SPENT: Greater than 60 minutes was spent on the discharge of the patient, greater than half was spent [id number] with the patient. [id number]/[facility] #: [id number] [facility]
== END 2018-03-21 13:00 | disposition home or self-care (01) ==
LOC: ED 17:20 → MED 21:57
PROVIDERS: ADMIT Internal Medicine; ATTEND Internal Medicine
DX: K80.20 Calculus of gallbladder without cholecystitis without obstruction (principal); N17.9 Acute kidney failure, unspecified; K59.00 Constipation, unspecified; R63.0 Anorexia; F17.210 Nicotine dependence, cigarettes, uncomplicated; K21.9 Gastro-esophageal reflux disease without esophagitis; F17.290 Nicotine dependence, other tobacco product, uncomplicated; E86.0 Dehydration; Z68.26 Body mass index [BMI] 26.0-26.9, adult; Z72.89 Other problems related to lifestyle; Z83.3 Family history of diabetes mellitus; Z82.49 Family history of ischemic heart disease and other diseases of the circulatory system
CPT/HCPCS: 36415; 74177; 74181; 76376; 76705; 80048; 80053; 80076; 81003; 81015; 82140; 82247; 82248; 83605; 83690; 83735; 84484; 85025; 85610; 86140; 87040; 90686; 93005; 99212; 99284; A9270-GY; G0463; J1644; J2270; J2405; J2543; Q9967

== ENCOUNTER 2022-01-21 12:32 | Inpatient (IN) ==
[2022-01-21 13:50] LABS: ABS Eosinophils 0.1 10^3/ul (0-0.6); ABS Lymphocytes 0.9 10^3/ul (1.0-4.8); ABS Monocytes 1.3 10^3/ul (0-0.8); ABS Neutrophils 9.2 10^3/ul (1.5-7.7); Eosinophil % 0.9 %; Hematocrit 49 % (42-52); Hemoglobin 16.9 g/dL (14.0-18.0); Lymphocyte % 7.6 %; Mean Corpuscular HGB Conc 35 g/dL (31-36); Mean Corpuscular Hemoglobin 34 pg (27-31); Mean Corpuscular Volume 99 fL (80-94); Mean Platelet Volume 8.2 fL (7.4-10.4); Platelet Count 137 10^3/uL (150-450); Red Blood Count 4.93 10^6 /uL (4.18-5.48); Red Cell Distribution Width 16 % (10-15); White Blood Count 11.6 10^3/uL (3.5-10.8)
[2022-01-21 13:56] LABS: INR 0.99 (0.89-1.11)
[2022-01-21 13:56] LABS: Urine Appearance Clear; Urine Bilirubin 1+ (Small) (Negative); Urine Color Yellow; Urine Glucose Negative (Negative); Urine Ketones Trace (Negative); Urine Nitrite Negative (Negative); Urine Protein 2+ (100 mg/dL) (Negative); Urine Specific Gravity 1.025 (1.005-1.030); Urine Urobilinogen 1.0 (Negative) (Negative); Urine pH 5.5 (5.0-9.0)
[2022-01-21 14:12] LABS: Urine Bacteria Absent (Absent); Urine Granular Casts Present (Absent); Urine Red Blood Cell Trace(0-2/hpf) (Absent); Urine Squamous Epithelial Cell Present (Absent); Urine White Blood Cell 1+(6-10/hpf) (Absent)
[2022-01-21 14:37] LABS: Albumin 4.5 g/dL (3.2-5.2); Albumin/Globulin Ratio 1.4 (1-3); C Reactive Protein 251.76 mg/L (<8.01); Calcium 9.7 mg/dL (8.6-10.3); Direct Bilirubin 0.9 mg/dL (0.03-0.18); Globulin 3.3 g/dL (2-4); Indirect Bilirubin 1.2 mg/dL (0.3-1.0); Magnesium 2.3 mg/dL (1.9-2.7); Potassium 4.1 mmol/L (3.5-5.0); Total Bilirubin 2.1 mg/dL (0.2-1.0); Total Protein 7.8 g/dL (6.4-8.9); eGFR CKD-EPI 51.5 (>60)
[2022-01-21] MEDS ORDERED: Iodixanol (CONTRAST) 320 MG/ML 100 ML SDV IV ONE (15:25)
[2022-01-21 16:44] LABS: High Sensitivity Troponin 1 Hr 5 pg/mL (<20)
[2022-01-21] MEDS ORDERED: Senna TAB 8.6 mg TAB PO PRN (18:41)
[2022-01-21] MEDS ORDERED: Heparin DRIP 25,000 UNITS BAG 25,000 UNITS/500 ML BAG IV SCH (18:45)
[2022-01-21] MEDS: Heparin 5000 UNITS/ML 1 mL VIAL IV SCH (18:46)
[2022-01-21] MEDS: Heparin DRIP 25,000 UNITS BAG 25,000 UNITS/500 ML BAG IV SCH (18:50)
[2022-01-21] MEDS: NS 0.9% 1000 ml BAG 1,000 ML IV SCH (21:18)
[2022-01-22 07:07] LABS: ABS Eosinophils 0.2 10^3/ul (0-0.6); ABS Lymphocytes 0.9 10^3/ul (1.0-4.8); ABS Neutrophils 6.2 10^3/ul (1.5-7.7); Eosinophil % 2.5 %; Hematocrit 41 % (42-52); Hemoglobin 14.8 g/dL (14.0-18.0); Lymphocyte % 10.9 %; Mean Corpuscular HGB Conc 36 g/dL (31-36); Mean Corpuscular Hemoglobin 35 pg (27-31); Mean Corpuscular Volume 98 fL (80-94); Mean Platelet Volume 8.7 fL (7.4-10.4); Platelet Count 142 10^3/uL (150-450); Red Blood Count 4.19 10^6 /uL (4.18-5.48); Red Cell Distribution Width 15 % (10-15); White Blood Count 8.4 10^3/uL (3.5-10.8)
[2022-01-22 07:25] LABS: Calcium 8.5 mg/dL (8.6-10.3); Potassium 4.4 mmol/L (3.5-5.0); eGFR CKD-EPI 99.6 (>60)
[2022-01-22] MEDS: Heparin 5000 UNITS/ML 1 mL VIAL IV SCH ×2 (07:30→17:54)
[2022-01-22] MEDS: Nicotine PATCH 21 MG/24 HR PATCH TRANSDERM SCH ×2 (08:19→10:34)
[2022-01-22] MEDS: NS 0.9% 1000 ml BAG 1,000 ML IV SCH (10:18)
[2022-01-22] MEDS: Heparin DRIP 25,000 UNITS BAG 25,000 UNITS/500 ML BAG IV SCH (13:00)
[2022-01-23] MEDS: Heparin DRIP 25,000 UNITS BAG 25,000 UNITS/500 ML BAG IV SCH ×2 (05:27→21:11)
[2022-01-23 06:17] LABS: ABS Eosinophils 0.2 10^3/ul (0-0.6); ABS Lymphocytes 0.9 10^3/ul (1.0-4.8); ABS Monocytes 1.1 10^3/ul (0-0.8); ABS Neutrophils 6.1 10^3/ul (1.5-7.7); Eosinophil % 2.3 %; Hematocrit 42 % (42-52); Hemoglobin 14.2 g/dL (14.0-18.0); Lymphocyte % 10.9 %; Mean Corpuscular HGB Conc 34 g/dL (31-36); Mean Corpuscular Hemoglobin 33 pg (27-31); Mean Corpuscular Volume 98 fL (80-94); Mean Platelet Volume 7.8 fL (7.4-10.4); Platelet Count 167 10^3/uL (150-450); Red Blood Count 4.26 10^6 /uL (4.18-5.48); Red Cell Distribution Width 15 % (10-15); White Blood Count 8.3 10^3/uL (3.5-10.8)
[2022-01-23 06:28] LABS: Activated Partial Thrombo Time 61.5 seconds (26.0-38.0); INR 1.01 (0.89-1.11)
[2022-01-23 07:12] LABS: Calcium 8.4 mg/dL (8.6-10.3); Potassium 4.4 mmol/L (3.5-5.0); eGFR CKD-EPI 104.8 (>60)
[2022-01-23] MEDS: Nicotine PATCH 21 MG/24 HR PATCH TRANSDERM SCH (08:27)
[2022-01-24] MEDS ORDERED: Nicotine GUM 4MG FRUIT FLAVOR PO PRN (09:57)
[2022-01-24] MEDS: Nicotine GUM 2MG FRUIT FLAVOR PO PRN (12:08)
[2022-01-24] MEDS: Nicotine PATCH 21 MG/24 HR PATCH TRANSDERM SCH (12:28)
[2022-01-24] MEDS: Nicotine PATCH 14 MG/24 HR PATCH TRANSDERM SCH (13:57)
[2022-01-24] MEDS: Magnesium Hydroxide LIQ 30 ML UDC PO PRN (13:59)
[2022-01-24] MEDS: Heparin DRIP 25,000 UNITS BAG 25,000 UNITS/500 ML BAG IV SCH (14:23)
[2022-01-25] MEDS: Heparin DRIP 25,000 UNITS BAG 25,000 UNITS/500 ML BAG IV SCH ×2 (05:26→20:50)
[2022-01-25 05:57] LABS: ABS Eosinophils 0.2 10^3/ul (0-0.6); ABS Neutrophils 5.8 10^3/ul (1.5-7.7); Eosinophil % 2.7 %; Hematocrit 42 % (42-52); Hemoglobin 14.4 g/dL (14.0-18.0); Lymphocyte % 12.2 %; Mean Corpuscular HGB Conc 34 g/dL (31-36); Mean Corpuscular Hemoglobin 33 pg (27-31); Mean Corpuscular Volume 97 fL (80-94); Mean Platelet Volume 7.9 fL (7.4-10.4); Platelet Count 263 10^3/uL (150-450); Red Blood Count 4.37 10^6 /uL (4.18-5.48); Red Cell Distribution Width 16 % (10-15)
[2022-01-25 06:27] LABS: Calcium 8.7 mg/dL (8.6-10.3); Potassium 4.5 mmol/L (3.5-5.0); eGFR CKD-EPI 104.8 (>60)
[2022-01-25] MEDS: Nicotine PATCH 14 MG/24 HR PATCH TRANSDERM SCH (09:00)
[2022-01-25] MEDS: Nicotine GUM 2MG FRUIT FLAVOR PO PRN (09:01)
[2022-01-25] MEDS: Magnesium Hydroxide LIQ 30 ML UDC PO PRN (12:31)
[2022-01-26 06:52] LABS: ABS Basophils 0.1 10^3/ul (0-0.2); ABS Eosinophils 0.2 10^3/ul (0-0.6); ABS Lymphocytes 1.1 10^3/ul (1.0-4.8); ABS Monocytes 0.9 10^3/ul (0-0.8); Eosinophil % 2.3 %; Hematocrit 42 % (42-52); Hemoglobin 14.5 g/dL (14.0-18.0); Mean Corpuscular HGB Conc 35 g/dL (31-36); Mean Corpuscular Hemoglobin 33 pg (27-31); Mean Corpuscular Volume 97 fL (80-94); Mean Platelet Volume 7.1 fL (7.4-10.4); Platelet Count 337 10^3/uL (150-450); Red Blood Count 4.33 10^6 /uL (4.18-5.48); Red Cell Distribution Width 15 % (10-15); White Blood Count 8.2 10^3/uL (3.5-10.8)
[2022-01-26 07:05] LABS: Activated Partial Thrombo Time 59.7 seconds (26.0-38.0); INR 0.96 (0.89-1.11)
[2022-01-26 07:16] LABS: Potassium 4.6 mmol/L (3.5-5.0); eGFR CKD-EPI 102.1 (>60)
[2022-01-26] MEDS: Nicotine PATCH 14 MG/24 HR PATCH TRANSDERM SCH (08:39)
[2022-01-26] MEDS ORDERED: Heparin DRIP 25,000 UNITS BAG 25,000 UNITS/500 ML BAG ONE (13:27)
[2022-01-26] MEDS ORDERED: Iohexol 350 (CONTRAST) 100 ML PAK IV ONE ×2 (13:27→14:04)
[2022-01-26] MEDS ORDERED: Heparin 2 UNITS/ML IVPREMIX 2,000 UNIT/1,000 ML BAG IV ONE (13:27)
[2022-01-26] MEDS ORDERED: Heparin 1,000 UNIT/ML 10 ml (10,000 UNITS) CATHLAB/DIALYSIS ONE (13:27)
[2022-01-26] MEDS ORDERED: Lidocaine 1% MPF 5 ML VIAL ONE (13:27)
[2022-01-26] MEDS ORDERED: Heparin 2 UNITS/ML IVPREMIX 1,000 UNIT/500 ML BAG IV ONE ×2 (13:29→15:04)
[2022-01-26] MEDS ORDERED: fentaNYL 100 mcg/2 ml 50 MCG/ML VIAL ONE ×2 (13:30→14:10)
[2022-01-26] MEDS ORDERED: Midazolam 5 mg/5 ml VIAL 1 mg/ml 5 ml VIAL (5 mg) ONE (13:30)
[2022-01-27 06:38] LABS: eGFR CKD-EPI 100.6 (>60)
[2022-01-27] MEDS: Nicotine PATCH 14 MG/24 HR PATCH TRANSDERM SCH (09:22)
[2022-01-27 13:49] VITALS: BP 111/61
[2022-01-27] MEDS: Magnesium Hydroxide LIQ 30 ML UDC PO PRN (15:07)
[2022-01-27 18:35] LABS: Anaplasma phagocytophilum Negative (Negative); B. miyamotoi PCR, B Negative (Negative); Babesia divergens/MO-1 Negative (Negative); Babesia ducani Negative (Negative); Ehrlichia chaffeensis Negative (Negative); Ehrlichia ewingii/canis Negative (Negative); Ehrlichia muris eauclairensis Negative (Negative)
== END 2022-01-27 15:50 | disposition home or self-care (01) | DRG 182 ==
LOC: ED 12:32 → EDHOLD 18:33 → SUATTDRO 18:33 → EDHOLD 01-22 07:43 → MEDTELE 01-22 08:06
PROVIDERS: ADMIT Internal Medicine; ATTEND Internal Medicine